=== PATIENT | male | born 1995 | race Caucasian/White ===

== ENCOUNTER 2019-02-19 04:09 | Emergency (ER) | payer BC ==
[2019-02-19] MEDS ORDERED: METOCLOPRAMIDE HCL 10 MG/2 ML VIAL IVP ONE (04:22)
[2019-02-19] MEDS ORDERED: DIPHENHYDRAMINE HCL 50 MG/ML VIAL IVP ONE (04:22)
[2019-02-19] MEDS ORDERED: ACETAMINOPHEN 500 MG TABLET PO ONE (04:22)
[2019-02-19] MEDS ORDERED: 0.9 % SODIUM CHLORIDE 1000ML 1,000 ML IV SCH (04:30)
[2019-02-19 04:39] LABS: ABSOLUTE NEUTROPHIL COUNT 3.39; BASO % 0.2 % (0-6); GRAN % 56.2 % (47-80); HEMATOCRIT 42.8 % (42.0-52.0); LYMPH % 31.6 % (16-45); MEAN CELL VOLUME 89.4 fl (81-97); MEAN CORPUSCULAR HEMOGLOBIN 29.2 pg (27-33); MEAN CORPUSCULAR HGB CONC 32.7 g/dl (32-36); MEAN PLATELET VOLUME 10.3 fl (7.4-10.4); PLATELET COUNT 214 K/uL (130-400); RED BLOOD COUNT 4.79 M/uL (4.40-5.70); RED CELL DISTRIBUTION WIDTH 12.9 % (11.5-14.5)
[2019-02-19 04:44] LABS: BLOOD UREA NITROGEN 8 mg/dL (6-20); CREATININE 0.8 mg/dL (0.7-1.2); EST GLOMERULAR FILTRATION RATE > 60 mL/min
[2019-02-19 04:45] LABS: TOTAL PROTEIN 7.2 g/dL (6.6-8.7)
[2019-02-19 04:47] LABS: GLUCOSE,RANDOM 108 mg/dL (74-109)
[2019-02-19 04:50] LABS: ALB/GLOB RATIO 1.9 (1.1-1.8); ALBUMIN 4.7 g/dL (4.0-5.0); ALKALINE PHOSPHATASE 74 U/L (40-129); ALT/SGPT 29 U/L (<41); AST/SGOT 49 U/L (10.0-50.0); C-REACTIVE PROTEIN 0.49 mg/dL (<0.5)
[2019-02-19 04:52] LABS: INFLUENZA A NEGATIVE (NEGATIVE); INFLUENZA B NEGATIVE (NEGATIVE)
--- NOTE | 2019-02-19 05:02 | Emergency Department Record ---
History of Present Illness - General Chief Complaint: Headache Migraine Stated Complaint: HEADACHE Time Seen by Provider: 02/19/19 04:14 Source: Patient Mode of Arrival: Ambulatory Limitations: No limitations - History of Present Illness Initial Comments: 23 yo male presents to ED for evaluation of headache symptoms for the past several days described as "throbbing". Patient reports low-grade fever this morning as well, denies sore throat or ear pain symptoms. Patient does report mild cough symptoms. 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 Patient also played football yesterday, reports "adrenaline improved my headache". Patient denies head injury or trauma symptoms. MD Complaint: Headache Onset/Timin -: Days(s) Onset Description: Gradual Location: Diffuse Severity: Severe Severity scale (1-10): 8 Quality: Throbbing Consistency: Constant, Getting worse Improves With: Nothing Worsens With: Exertion/activity, Light, Noise, Sitting/standing, Other Associated Symptoms: Confusion, Fever, Nausea Other Symptoms: Cough Treatments Prior to Arrival: None - Related Data Allergies Allergy/AdvReac Type Severity Reaction Status Date / Time No Known Drug Allergies Allergy Verified 02/19/19 04:46 Travel Screening - Travel/Exposure Within Last 30 Days Have you traveled within the last 30 days?: No - Travel Symptoms Symptom Screening: None Review of Systems Constitutional: Reports: Fever. Denies: Chills, Malaise, Night sweats Eyes: Denies: Eye discharge, Eye pain ENT: Denies: Congestion, Ear pain, Epistaxis Respiratory: Denies: Cough, Dyspnea Cardiovascular: Denies: Chest pain, Dyspnea on exertion Endocrine: Denies: Fatigue, Heat or cold intolerance Gastrointestinal: Denies: Abdominal pain, Nausea, Vomiting Genitourinary: Denies: Incontinence, Retention Musculoskeletal: Reports: Myalgia. Denies: Arthralgia, Back pain Skin: Denies: Bruising, Change in color Neurological: Reports: Headache. Denies: Abnormal gait, Confusion, Seizure Psychiatric: Denies: Anxiety Hematological/Lymphatic: Denies: Anemia, Blood Clots Past Medical History - SOCIAL HISTORY Smoking Status: Never smoker Alcohol Use: Rare Drug Use: Rare Drug Use Detail:: Marijuana - RESPIRATORY Hx Respiratory Disorders: No - CARDIOVASCULAR Hx Cardio Disorders: No - NEURO Hx Neuro Disorders: Yes Hx Headaches: Yes (concussion) - GI Hx GI Disorders: No - Hx Genitourinary Disorders: No - ENDOCRINE Hx Endocrine Disorders: No Hx Diabetes: No Hx Thyroid Disease: No - MUSCULOSKELETAL Hx Musculoskeletal Disorders: No Hx Arthritis: No - PSYCH Hx Psych Problems: No - HEMATOLOGY/ONCOLOGY Hx Hematology/Oncology Disorders: No Family Medical History Any Significant Family History?: No Family Hx Comment (NOT TO BE USED IN PLACE OF ITEMS BELOW): denies Physical Exam - General General Appearance: Alert, Oriented x3, Cooperative, Moderate distress Limitations: No limitations - Head Head exam: Atraumatic, Normocephalic, Normal inspection Head exam detail: negative: Abrasion, Contusion, Kulkarni's sign, General tenderness, Hematoma, Laceration - Eye Eye exam: Normal appearance. negative: Conjunctival injection, Periorbital swelling, Periorbital tenderness, Scleral icterus - ENT Ear exam: negative: Auricular hematoma, Auricular trauma Nasal Exam: negative: Active bleeding, Discharge, Dried blood, Foreign body Mouth exam: negative: Drooling, Laceration, Muffled voice, Tongue elevation - Neck Neck exam: Normal inspection. negative: Meningismus, Tenderness - Respiratory Respiratory exam: Normal lung sounds bilaterally. negative: Rales, Respiratory distress, Rhonchi, Stridor - Cardiovascular Cardiovascular Exam: Regular rate, Normal rhythm, Normal heart sounds - GI/Abdominal GI/Abdominal exam: Soft. negative: Rebound, Rigid, Tenderness - Rectal Rectal exam: Deferred - exam: Deferred - Extremities Extremities exam: Normal inspection. negative: Pedal edema, Tenderness - Back Back exam: Denies: CVA tenderness (R), CVA tenderness (L) - Neurological Neurological exam: Alert, Normal gait, Oriented X3 - Psychiatric Psychiatric exam: Normal affect, Normal mood - Skin Skin exam: Normal color. negative: Abrasion Type of lesion: negative: abrasion Course Vital Signs 02/19/19 04:20 Temperature 100.2 F H Pulse Rate [ 89 Left] Respiratory 16 Rate Blood Pressure 124/71 [Left Arm] Pulse Ox 98 - Reevaluation(s) Reevaluation #1: 02/19/19 05:01 Laboratory studies were reviewed and appear grossly unremarkable for an acute process. Reevaluation #2: 02/19/19 05:54 CXR: No acute process CT Brain: No acute intra-cranial process Chiari I malformation 02/19/19 07:26 Patient is back from CT imaging, reports that his headache symptoms are improved to 2/10 from 810, temperature improved to 99.6 Patient has no meningeal signs on re-examination. I personally reviewed all of the patient's laboratory results (normal), CXR (normal), and based on re-examination and patient's improvement in his clinical symptoms, LP does not appear indicated. Given the patient's CT findings, transfer for neurosurgical/neurology consultation would be warranted prior to performing LP. Patient does not appear to necessitate transfer at this time for consideration of LP based on my re-examination. Patient and his father are in agreement with the plan of care as discussed and are in agreement that transfer does not appear indicated at this time. I did print a copy of the patient's report to take to his PCP for further evaluation given further participation in football. Patient appears stable for discharge at this time. Medical Decision Making - Lab Data Result diagrams: 02/19/19 04:25 02/19/19 04:25 Lab Results 02/19/19 02/19/19 02/19/19 Range/Units 04:25 04:25 04:25 WBC 6.0 (4.2-12.2) K/uL RBC 4.79 (4.40-5.70) M/uL Hgb 14.0 (14.0-18.0) gm/dl Hct 42.8 (42.0-52.0) % MCV 89.4 (81-97) fl MCH 29.2 (27-33) pg MCHC 32.7 (32-36) g/dl RDW 12.9 (11.5-14.5) % Plt Count 214 (130-400) K/uL MPV 10.3 (7.4-10.4) fl Gran % 56.2 (47-80) % Lymphocytes % 31.6 (16-45) % Monocytes % 11.0 H (0-9) % Eosinophils % 1.0 (0-6) % Basophils % 0.2 (0-6) % Absolute Neutrophils 3.39 Sodium 138 (136-145) mmol/L Potassium 3.9 (3.4-4.5) mmol/L Chloride 101 (98-107) mmol/L Carbon Dioxide 26.0 (22-29) mmol/L Anion Gap 11.0 (7-16) BUN 8 (6-20) mg/dL Creatinine 0.8 (0.7-1.2) mg/dL Estimated GFR > 60 mL/min Random Glucose 108 (74-109) mg/dL Calcium 9.0 (8.6-10.0) mg/dL Total Bilirubin 0.30 (0.2-1.0) mg/dL AST 49 (10.0-50.0) U/L ALT 29 (<41) U/L Alkaline Phosphatase 74 (40-129) U/L C-Reactive Protein 0.49 (<0.5) mg/dL Total Protein 7.2 (6.6-8.7) g/dL Albumin 4.7 (4.0-5.0) g/dL Globulin 2.5 (1.4-4.8) gm/dL Albumin/Globulin Ratio 1.9 H (1.1-1.8) Influenza Type A Ag Negative (NEGATIVE) Influenza Type B Ag Negative (NEGATIVE) Disposition Disposition: Discharge Clinical Impression: Viral syndrome Acute headache Qualifiers: Headache type: unspecified Intractability: not intractable Qualified Code(s): R51 - Headache Disposition: Home, Self-Care Condition: (2) Stable Instructions: Viral Syndrome (ED) Additional Instructions: Return to ED if your symptoms worsen or if you have any concerns. Tylenol/Ibuprofen as directed. Follow-up with your family doctor in 1-3 days as directed. Forms: Patient Portal Access Time of Disposition: 07:26 Quality - Quality Measures Quality Measures: N/A - Blood Pressure Screening Does Patient Have Any of the Following: No Blood Pressure Classification: Normal BP Reading Systolic Measurement: 119 Diastolic Measurement: 64 Screening for High Blood Pressure: < Normal BP, F/U Not Required > [G8783]
[2019-02-19] MEDS ORDERED: IBUPROFEN 400 MG TABLET PO ONE (05:07)
[2019-02-19 05:18] LABS: ERYTHROCYTE SEDIMENTATION RATE 7 mm/hr (0-15)
--- NOTE | 2019-02-19 05:39 | RADIOLOGY REPORT ---
EXAMINATION: Two View Chest Radiographs EXAM DATE: 02/19/2019 5:33 AM TECHNIQUE: Frontal and lateral views INDICATION: cough COMPARISON: None ENCOUNTER: Not applicable FINDINGS: The heart, mediastinum, and pulmonary vasculature are normal. No lung consolidation or pleural effu sions are present. IMPRESSION: No acute pulmonary disease process Dictated by: Jolly Bashir DO on 02/19/2019 5:35 AM. .
--- NOTE | 2019-02-19 07:11 | CT SCAN REPORT ---
EXAMINATION: CT Head without IV Contrast EXAM DATE: 02/19/2019 6:21 AM TECHNIQUE: Standard protocol CT images of the head were obtained without intravenous contrast. Figueroa l and sagittal reconstructed images were created. INDICATION: Headache, fever COMPARISON: CT head 01/28/2014 HAND DOMINANCE: Unknown. ENCOUNTER: Not applicable FINDINGS: 1. No intracranial mass effect, shift of midline structures, intra-axial or extra-axial hemorrhage, o r other extra-axial fluid collections. 2. Brain volume and ventricular size are appropriate for patient's stated age. No ventricular outflow obstruction. 3. Staton-white matter differentiation is preserved. No sulcal effacement. No suspicious areas of alter ed attenuation. 4. Cerebellar tonsils are low-lying extending approximately 8 mm below the level of the foramen magnu m on the right and 5 mm on the left. Remainder of midline structures and craniocervical junction are unremarkable. 5. No depressed or widely calvarial fractures. No aggressive calvarial lesions. 6. Visualized paranasal sinuses and temporal bone structures are well aerated. Unremarkable appearanc e of the orbital compartments. 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 Consider further evaluation with MRI of brain with CSF flow analysis of the foramen magnu m on a nonemergent basis, as clinically warranted. Otherwise, no convincing acute intracranial abnormality to the limits of noncontrast CT technique. Dictated by: Annabella Maldonado MD on 02/19/2019 7:03 AM. .
== END 2019-02-19 07:33 | disposition home or self-care (01) ==
LOC: ER 04:09
DX: R51 Headache (principal); B34.9 Viral infection, unspecified; R11.0 Nausea; R05 Cough
CPT/HCPCS: 70450; 71046; 80053; 85025; 85651; 86140; 87400; 96374; 96375; 99284; J1200; J2765; J7030